=== PATIENT | male | born 1950 | race Asian ===

== ENCOUNTER 2020-01-22 09:20 | Day surgery (SDC) | payer MEDICARE ==
[~2020-01-22] VITALS: Ht 167.6 cm; Wt 72.1 kg
[~2020-01-22 09:20] MED LIST: DAILY MULTIPLE1 EACH PO; LEVOTHYROXINE100 MCG PO
--- NOTE | 2020-01-22 11:22 | NUR ---
01/22/20 1122 Sheets,Maame 1116 PT ARRIVED TO PACU ASLEEP AND ON 2L VIA NC. SMALL AMOUNT OF SNORING NOTED. VSS.
--- NOTE | 2020-01-22 18:33 | OR ---
[facility] [address] [place], [place] [address] Signed DATE OF OPERATION: 01/22/2020 SURGEON: Aiden Solares MD PREOPERATIVE DIAGNOSIS: Personal history of colonic polyps, age 55 (2005). POSTOPERATIVE DIAGNOSES: 1. A 2 mm polyps x2 at 10 cm. 2. A 4 mm polyp at 25 cm. PROCEDURE: Colonoscopy with hot biopsy. ESTIMATED BLOOD LOSS: None. INDICATIONS: Anand is a 69-year-old gentleman who was asked to see me for a followup colonoscopy. While in [place], [place], he had a colonoscopy at [facility]. He remembers polyps had been removed. He cannot remember being told to come back in 5 or 10 years. In the meantime, he has moved back home to [place]. He said he has no lower GI complaints. To his knowledge, there is no family history of colon cancer or polyps. In the office, I gave him a pamphlet on colonoscopy and we looked at that together along with the risks including, but not limited to gas, bloating, crampy abdominal pain, bleeding, perforation requiring surgery, and missed diagnosis. He also understands the need for IV conscious sedation. He had expressed understanding and wished to proceed. PROCEDURE NOTE: Anand was taken into our endoscopy suite and placed in the left lateral decubitus position. He was given a total of 5 mg of Versed and 100 mcg of fentanyl to cover the case. A digital rectal exam was performed and this was unremarkable. The adult colonoscope was introduced and advanced all around into the cecum under direct visualization of camera without difficulty. His prep was good. The scope was slowly withdrawn. We could easily see the appendiceal orifice and the ileocecal valve. There was no diverticulosis. The above-mentioned polyps were easily removed with the help of hot biopsy forceps. Upon retroflexion of the scope, there was no additional pathology noted above the anal canal. After this, the gas was suctioned out and the colonoscope removed. Anand tolerated his procedure quite well. Electronically Signed By: AIDEN SOLARES MD 01/22/20 1833 PATIENT NAME: ANAND COPE OPERATIVE REPORT DATE OF : 46 REPORT #: [id number] PHYSICIAN: AIDEN SOLARES MD PCP: ILAN SAM MD REPORT IS CONFIDENTIAL AND NOT TO BE RELEASED WITHOUT AUTHORIZATION [address] [address] Signed RECOMMENDATIONS: I will see Annad back in my office in 7 to 14 days to review his results. Aiden Solares MD ALB/MODL /[id number] cc: Ilan Sam MD Copies: ~ Electronically Signed By: AIDEN SOLARES MD 01/22/20 1833 PATIENT NAME: ANAND COPE OPERATIVE REPORT DATE OF : 46 REPORT #: [id number] PHYSICIAN: AIDEN SOLARES MD PCP: ILAN SAM MD REPORT IS CONFIDENTIAL AND NOT TO BE RELEASED WITHOUT AUTHORIZATION
--- NOTE | 2020-01-23 10:46 | PATH ---
[facility] [address] [facility] [place], [place] [address] Signed SPECIMEN(S): A SIGMOID POLYP AT 25 CM SPECIMEN(S): B RECTAL POLYP AT 10 CM SPECIMEN SOURCE: A. SIGMOID POLYP AT 25 CM B. RECTAL POLYP AT 10 CM CLINICAL HISTORY: Colonoscopy. History of polyps. MICROSCOPIC DESCRIPTION: Histologic sections of all submitted blocks are examined by light microscopy. These findings, together with the gross examination, support the pathologic diagnosis. FINAL PATHOLOGIC DIAGNOSIS: A. Colon, sigmoid, polyp at 25 cm, polypectomy: - Hyperplastic polyp. - Negative for dysplasia or malignancy. B. Rectum, polyp at 10 cm, polypectomy: - Hyperplastic polyp. - Negative for dysplasia or malignancy. NAL:cml:C2NR GROSS DESCRIPTION: Two specimens are received in two containers, labeled "RS." A. The specimen, labeled "RS," and designated on the requisition "sigmoid polypectomy, 25 cm," is received in formalin and consists of two fragments of pink-boyle tissue (0.5 x 0.3 x 0.2 cm). The specimen is submitted entirely in cassette (A1). B. The specimen, labeled "RS," and designated on the requisition "rectum polypectomy, 10 cm," is received in formalin and consists of two fragments of pink-boyle tissue (0.5 x 0.3 x 0.2 cm in aggregate). The specimen is submitted entirely in cassette (B1). AC (under the direct supervision of a pathologist) The Gross Description was prepared using a voice recognition system. The report was reviewed for accuracy; however, sound-alike word errors, addition and/or deletions may occur. If there is any question about this report, please contact Client Services. PERFORMING LABORATORY: The technical component was performed by [facility], [address] [place], [place] [address]gladys [facility], PATIENT NAME: ANAND COPE PATHOLOGY DATE OF : 46 REPORT #: [id number] PHYSICIAN: SMITH SABILLON PCP: JANELL SAM MD REPORT IS CONFIDENTIAL AND NOT TO BE RELEASED WITHOUT AUTHORIZATION [facility] [address] [place], [place] [address] [place] [address] (Chief Deputy Coroner: Maria L Schwab MD; CLIA# [id number]). Professional interpretation was performed by [facility], [address] [address] (CLIA# [id number]). Diagnostician: Geno Cline MD Pathologist Electronically Signed 01/23/2020 Copies: ~ PATIENT NAME: ANAND COPE PATHOLOGY DATE OF : 46 REPORT #: [id number] PHYSICIAN: SMITH SABILLON PCP: JANELL SAM MD REPORT IS CONFIDENTIAL AND NOT TO BE RELEASED WITHOUT AUTHORIZATION
== END 2020-01-22 12:25 | disposition home or self-care (01) ==
LOC: OPS 09:20 → DS 10:30 → OPS 12:25
PROVIDERS: Colon & Rectal Surgery
PROC: 0DBN8ZZ Excision of Sigmoid Colon, Via Natural or Artificial Opening Endoscopic (ICD-10-PCS; 2020-01-22)
PROC: 0DBP8ZZ Excision of Rectum, Via Natural or Artificial Opening Endoscopic (ICD-10-PCS; principal; 2020-01-22 10:30)
DX: K63.5 Polyp of colon (principal); K62.1 Rectal polyp; E03.9 Hypothyroidism, unspecified; F17.210 Nicotine dependence, cigarettes, uncomplicated; Z86.010 Personal history of colon polyps; Z79.899 Other long term (current) drug therapy; Z88.1 Allergy status to other antibiotic agents
CPT/HCPCS: 99153; G0500; J2250; J3010; J7121

== ENCOUNTER 2021-11-10 11:01 | Emergency (ER) | payer MEDICARE ==
[~2021-11-10] VITALS: Ht 167.6 cm; Wt 72.1 kg
[2021-11-10] MEDS ORDERED: GUAIFENESIN200 MG PO (12:12)
== END 2021-11-10 12:30 | disposition home or self-care (01) ==
LOC: ED 11:01
DX: H66.92 Otitis media, unspecified, left ear (principal); F17.200 Nicotine dependence, unspecified, uncomplicated; Z88.0 Allergy status to penicillin; E07.9 Disorder of thyroid, unspecified; Z79.899 Other long term (current) drug therapy
CPT/HCPCS: 99282

== ENCOUNTER 2022-02-04 07:39 | Day surgery (SDC) | payer MEDICARE ==
[~2022-02-04] VITALS: Ht 167.6 cm; Wt 74.7 kg
[~2022-02-04 07:39] MED LIST changes: +GUAIFENESIN200 MG PO
[2022-02-04] MEDS ORDERED: CLARITIN10 M2 PO (07:56)
--- NOTE | 2022-02-04 09:45 | NUR ---
02/04/22 0945 Joyce Pacheco 0927- PT ARRIVES TO PACU AROUSABLE TO TACTILE STIMULI. PT APNEIC AND NEEDED STIMULATED TO GET HIM TO BREATHE. PT IS ABLE TO START TAKING DEEP BREATHS WHEN TOLD. FALLS BACK TO SLEEP WHEN NOT BEING STIMULATED. OXYGEN SAT MID TO HIGH 90'S ON 3L VIA CO2 NC. 0930- PT CONTINUES TO NEED TO BE STIMULATED TO BREATHE HE OBSTRUCTS HIS AIRWAY WHEN ASLEEP. PT REMAINS AROUSABLE AND WILL TAKE GOOD BREATHS WHEN AWAKE. PT REPORTS NO PAIN OR NAUSEA. FALLS BACK TO SLEEP EASILY WHEN NOT BEING STIMULATED. 0937- PT CONTINUES TO NEED STIMULATED TO TAKE BREATHS HE OBSTRUCTS WHEN SLEEPING. PT REMAINS AROUSABLE TO TACTILE STIMULI AND IS ABLE TO ANSWER QUESTIONS AND FOLLOW COMMANDS. FALLS BACK TO SLEEP EASILY WHEN NOT BEING STIMULATED.
--- NOTE | 2022-02-05 06:42 | OR ---
[facility] [address] [place], [place] [address] Signed DATE OF OPERATION: 02/04/2022 SURGEON: Aiden Solares MD PREOPERATIVE DIAGNOSES: 1. Multiple allergies with postnasal drip. 2. Coughing and nausea. 3. Epigastric pain. 4. History of smoking. 5. Possible mild mid-esophageal thickening on CT scan. 6. Possible tiny hiatal hernia on CT scan. POSTOPERATIVE DIAGNOSES: 1. Moderate duodenitis in pyloric bulb. 2. Mild distal gastritis. 3. Tiny hiatal hernia. 4. Unremarkable mid esophagus. PROCEDURE: EGD with CLOtest and biopsies of the pyloric bulb, antrum, GE junction and midesophagus. ESTIMATED BLOOD LOSS: None. INDICATIONS: Anand is a 71-year-old gentleman asked to see me for upper endoscopy. I have helped Anand in the past with colonoscopies. He does well with Versed and fentanyl. He said he has had tremendous trouble with allergies. They tested him when he was living in [place], [place]. He said he was allergic to almost everything. He said his ears have been fluid-filled and quite miserable for several weeks. He describes constant postnasal drip. It results in significant coughing. He said he has also had epigastric abdominal pain and nausea. He has not had no vomiting. He actually went to the emergency room. The guaifenesin they gave him did not help. He is started on Claritin-D and he said that has actually done pretty well. He had been to his primary care provider. CT scan of his chest, abdomen, and pelvis were performed as well as an ultrasound. There may be some mild thickening in the mid esophagus. He may have a tiny hiatal hernia. Consequently, he was asked to see me today by his primary care provider for upper endoscopy with biopsies. I had met with Anand and his in the office. I gave him a pamphlet on upper endoscopy. We reviewed the nature of that test. There is risk including, but not limited to gas bloating, crampy abdominal pain, bleeding, Electronically Signed By: AIDEN SOLARES MD 02/05/22 0642 PATIENT NAME: ANAND COPE OPERATIVE REPORT DATE OF : 46 REPORT #: [id number] PHYSICIAN: AIDEN SOLARES MD PCP: ILAN SAM MD REPORT IS CONFIDENTIAL AND NOT TO BE RELEASED WITHOUT AUTHORIZATION [facility] [address] [place], [place] [address] Signed perforation requiring surgery, and missed diagnosis. He had expressed understanding and wished to proceed. PROCEDURE NOTE: Anand was taken into our endoscopy suite and placed in the supine semi-recumbent position. A bite block was utilized for the case. He was given 4 mg of Versed and 100 mcg of fentanyl to cover the case. The adult gastroscope was introduced and advanced under direct visualization of the camera. He did have some erythematous changes and irritation in his posterior oropharynx. The scope was then passed readily out into the third portion of the duodenum. The duodenum was unremarkable. However, his pyloric bulb showed moderate inflammatory changes. A biopsy was taken of the pyloric bulb for pathologic review. The distal half of the stomach showed mild erythematous changes. We took a biopsy of the antrum for pathologic review as well as CLOtest. There were no ulcerations. Upon retroflexion of the scope, we can see just a tiny hiatal hernia. It was actually seen better from above. The scope had been withdrawn up through the area of the GE junction, which was compliant without stricture. He does have some irritation around the Z-line. We went ahead and took a biopsy in this area. No Quiles's mucosa. No distal esophagitis. Really, we did not see any pathology in the middle or upper esophagus. We went ahead and took a single biopsy out of his mid esophagus. After this, the gas was suctioned out and the gastroscope was removed. Anand tolerated the procedure quite well. RECOMMENDATIONS: I will see Anand back in my office in 7 to 14 days to review his results. He might consider using a proton-pump inhibitor at least for a couple of months in addition to his Claritin. Aiden Solares MD ALB/MODL /[id number] cc: MD Dr. Ilan Alegria Electronically Signed By: AIDEN SOLARES MD 02/05/22 0642 PATIENT NAME: ANAND COPE OPERATIVE REPORT DATE OF : 46 REPORT #: [id number] PHYSICIAN: AIDEN SOLARES MD PCP: ILAN SAM MD REPORT IS CONFIDENTIAL AND NOT TO BE RELEASED WITHOUT AUTHORIZATION [address] [address] Signed Copies: AIDEN SOLARES MD ~ Electronically Signed By: AIDEN SOLARES MD 02/05/22 0642 PATIENT NAME: ANAND COPE OPERATIVE REPORT DATE OF : 46 REPORT #: [id number] PHYSICIAN: AIDEN SOLARES MD PCP: ILAN SAM MD REPORT IS CONFIDENTIAL AND NOT TO BE RELEASED WITHOUT AUTHORIZATION
--- NOTE | 2022-02-05 11:54 | PATH ---
[facility] [address] [facility] [place], [place] [address] Signed SPECIMEN(S): A PYLORIC BULB BIOPSY SPECIMEN(S): B ANTRUM BIOPSY SPECIMEN(S): C GE JUNCTION SPECIMEN(S): D MIDDLE ESOPHAGEAL BIOPSY SPECIMEN SOURCE: A. PYLORIC BULB BIOPSY B. ANTRUM BIOPSY C. GE JUNCTION D. MIDDLE ESOPHAGEAL BIOPSY CLINICAL HISTORY: EGD. Pre: Epigastric pain, cough, nausea. Post: Moderate duodenitis, mild gastritis. FINAL PATHOLOGIC DIAGNOSIS: A. Pyloric bulb biopsy: - Proximal small bowel-type mucosa with mild acute and chronic inflammation. - Negative for evidence of dysplasia or malignancy. B. Antrum biopsy: - Benign gastric antral-type mucosa with focal slight chronic inflammation. - Negative for evidence of Helicobacter organisms on routine HE stained sections. C. GE junction: - Benign esophageal and gastric-type mucosa with reactive features and mild chronic inflammation. - Focal scant specialized intestinal (goblet cell) metaplasia, negative for dysplasia. - See comment. D. Middle esophageal biopsy: - Benign esophageal epithelium, negative for increased epithelial eosinophils. COMMENT: The gastroesophageal junction biopsy reveals several goblet cells on two levels. These are very limited in number. Clinical correlation is requested to determine their significance. JVR:luan:C2NR MICROSCOPIC EXAMINATION: Histologic sections of all submitted blocks are examined by light microscopy. These findings, together with the gross examination, support the pathologic PATIENT NAME: ANAND COPEYaneli PATHOLOGY DATE OF : 46 REPORT #: [id number] PHYSICIAN: SMITH SABILLON PCP: JANELL SAM MD REPORT IS CONFIDENTIAL AND NOT TO BE RELEASED WITHOUT AUTHORIZATION [facility] [address] [place], [place] [address] Signed diagnosis. GROSS DESCRIPTION: Four specimens are received in four containers labeled with "RS." A. The specimen, labeled "RS, 1," and designated on the requisition "pyloric bulb biopsy," is received in formalin and consists of one fragment of pink-boyle tissue (0.4 cm in greatest dimension). The specimen is submitted entirely in cassette (A1). B. The specimen, labeled "RS, 2," and designated on the requisition "antrum biopsy," is received in formalin and consists of one fragment of pink-boyle tissue (0.3 cm in greatest dimension). The specimen is submitted entirely in cassette (B1). C. The specimen, labeled "RS, 3," and designated on the requisition "EG junction biopsy," is received in formalin and consists of two fragments of white-boyle tissue (0.3 cm in greatest dimension). The specimen is submitted entirely in cassette (C1). D. The specimen, labeled "RS, 4," and designated on the requisition "middle esophagus biopsy," is received in formalin and consists of one fragment of white-boyle tissue (0.3 cm in greatest dimension). The specimen is submitted entirely in cassette (D1). AC (under the direct supervision of a pathologist) The Gross Description was prepared using a voice recognition system. The report was reviewed for accuracy; however, sound-alike word errors, addition and/or deletions may occur. If there is any question about this report, please contact Client Services. PERFORMING LABORATORY: The technical component was performed by [facility], [address] [place] [id number] (CLIA# [id number]). Professional interpretation was performed by [facility], [address] [place] [address] Ave[address] [place] [address] (CLIA#: [id number]). Diagnostician: Ramon Newton MD Pathologist Electronically Signed 02/05/2022 Copies: ~ PATIENT NAME: SRINIVAS COPEALD MANDYYaneli PATHOLOGY DATE OF : 46 REPORT #: [id number] PHYSICIAN: SMITH PATHOLOGY PCP: JANELL SAM MD REPORT IS CONFIDENTIAL AND NOT TO BE RELEASED WITHOUT AUTHORIZATION
== END 2022-02-04 10:42 | disposition home or self-care (01) ==
LOC: OPS 07:39 → DS 07:39 → OPS 10:42
PROVIDERS: ATTEND Colon & Rectal Surgery
PROC: 0DB78ZX Excision of Stomach, Pylorus, Via Natural or Artificial Opening Endoscopic, Diagnostic (ICD-10-PCS; 2022-02-04)
PROC: 0DB68ZX Excision of Stomach, Via Natural or Artificial Opening Endoscopic, Diagnostic (ICD-10-PCS; 2022-02-04)
PROC: 0DB28ZX Excision of Middle Esophagus, Via Natural or Artificial Opening Endoscopic, Diagnostic (ICD-10-PCS; 2022-02-04)
PROC: 0DB48ZX Excision of Esophagogastric Junction, Via Natural or Artificial Opening Endoscopic, Diagnostic (ICD-10-PCS; principal; 2022-02-04 09:00)
DX: K29.00 Acute gastritis without bleeding (principal); K29.50 Unspecified chronic gastritis without bleeding; K29.80 Duodenitis without bleeding; K44.9 Diaphragmatic hernia without obstruction or gangrene; K20.90 Esophagitis, unspecified without bleeding; E03.9 Hypothyroidism, unspecified; Z88.1 Allergy status to other antibiotic agents; Z87.891 Personal history of nicotine dependence; R09.82 Postnasal drip
CPT/HCPCS: 36415; 87077; 99153; G0500; J2250; J3010; J7121

== ENCOUNTER 2024-02-15 12:23 | Emergency (ER) | payer MEDICARE, OTHER ==
[~2024-02-15] VITALS: Ht 320 cm; Wt 80.5 kg
[~2024-02-15 12:23] MED LIST changes: +CLARITIN10 M2 PO
[2024-02-15] MEDS ORDERED: LISINOPRIL20 MG PO (12:58)
[2024-02-15] MEDS ORDERED: CYCLOBENZAPRINE5 MG PO (12:58)
[2024-02-15] MEDS ORDERED: VENTOLIN HFA18 GM INH (12:59)
[2024-02-15] MEDS ORDERED: KETOROLAC TROMETHAMINE 60 MG/2 ML VIAL IM ONE (13:30)
[2024-02-15] MEDS ORDERED: HYDROCODONE/ACETA 7.5/325 TAB PO ONE (13:30)
[2024-02-15] MEDS ORDERED: HYDROCODON-ACE1 EA11 PO (14:50)
[2024-02-15 14:58] VITALS: BP 118/85
== END 2024-02-15 14:58 | disposition home or self-care (01) ==
LOC: ED 12:23
DX: M54.41 Lumbago with sciatica, right side (principal); F17.200 Nicotine dependence, unspecified, uncomplicated; Z79.890 Hormone replacement therapy; Z79.899 Other long term (current) drug therapy
CPT/HCPCS: 96372; 99283-25; A9270; J1885

== ENCOUNTER 2025-01-06 08:13 | Emergency (ER) | payer MEDICARE, OTHER ==
[~2025-01-06] VITALS: Ht 320 cm; Wt 78.0 kg
[~2025-01-06 08:13] MED LIST changes: +CYCLOBENZAPRINE5 MG PO; +HYDROCODON-ACE1 EA11 PO; +LISINOPRIL20 MG PO; +VENTOLIN HFA18 GM INH
[2025-01-06] MEDS ORDERED: LISINOPRIL40 MG PO (08:24)
[2025-01-06] MEDS ORDERED: OMEPRAZOLE40 MG PO (08:24)
[2025-01-06] MEDS ORDERED: KETOROLAC TROMETHAMINE 15 MG/ML VIAL IV ONE (08:30)
[2025-01-06] MEDS ORDERED: SODIUM CHLORIDE 0.9% 1,000 ML IV ONE (08:30)
[2025-01-06] MEDS ORDERED: ACETAMINOPHEN 500 MG TAB PO ONE (08:30)
[2025-01-06 08:40] LABS: BASOPHILS 0.4 % (0.2-1.2); EOSINOPHILS 0.4 % (0.8-7.0); LYMPHOCYTES 25.1 % (21.8-53.1); MCH 30.9 PG (25.7-32.2); MCHC 35.3 g/dL (32.3-36.5); MCV 87.5 fL (79.0-92.2); MONOCYTES 13.1 % (5.3-12.2); NEUTROPHILS 60.8 % (34.0-67.9); RBC 4.95 M/uL (4.63-6.08)
[2025-01-06 08:56] LABS: ALT (SGPT) 35.0 U/L (14-59); AST (SGOT) 38.0 U/L (15-37); GLOMERULAR FILTRATION RATE,EST 76.0 mL/min (>60); PROTEIN, TOTAL 8.2 g/dL (6.4-8.2); UREA NITROGEN 6.0 mg/dL (7-18)
[2025-01-06] MEDS ORDERED: PREDNISONE20 MG PO (09:23)
[2025-01-06 10:29] VITALS: BP 127/74
== END 2025-01-06 10:30 | disposition home or self-care (01) ==
LOC: ED 08:13
PROVIDERS: Emergency Medicine
DX: J02.9 Acute pharyngitis, unspecified (principal); I10 Essential (primary) hypertension; F17.200 Nicotine dependence, unspecified, uncomplicated; Z79.899 Other long term (current) drug therapy; Z88.8 Allergy status to other drugs, medicaments and biological substances
CPT/HCPCS: 36415; 80053; 85025; 87651; 96374; 96375; 99283-25; A9270; J1885; J2919; J7030

== ENCOUNTER 2025-02-20 08:44 | Day surgery (SDC) | payer MEDICARE, OTHER ==
[~2025-02-20] VITALS: Ht 167.6 cm; Wt 82.0 kg
[~2025-02-20 08:44] MED LIST changes: +IBLOOD GLUCOSE TEST STRIP 1 EA TEST VI PRN; +LACTATED RINGER'S 1,000 ML IV SCH; +LIDOCAINE HCL 1% 5 ML SDV INJ ONE; +LISINOPRIL40 MG PO; +OMEPRAZOLE20 MG PO; +OMEPRAZOLE40 MG PO; +PREDNISONE20 MG PO
[2025-02-20 08:53] VITALS: BP 132/72
[2025-02-20] MEDS ORDERED: LIDOCAINE HCL 2% 5 ML SDV ONE (11:13)
--- NOTE | 2025-02-20 11:45 | NUR ---
02/20/25 1145 Avani Gutierres 1130- PT ARRIVES TO PACU WITH ORAL AIRWAY IN PLACE. PT IS NOT OF O2 AT THIS TIME. O2 NC PUT IN PLACE FOR SATS LOWERING ON L2 OT SATS DECREASED TO 87%. CHIN LIFT NEEDED OFF AND ON TO MAINTAIN AIRWAY. VITAL SIGNS OBTAINED AND MONITORS PUT IN PLACE. LR INFUSING. PT IS NONREACTIVE AT THIS TIME. 1134- PT BEGINS PUSHING ORAL AIRWAY OUT AND COUGHING. ORAL AIRWAY REMOVED. PT DENIES PAIN AND NAUSEA. CHIN LIFT NO LONGER NEEDED. PT IS ENCOURAGED TO TAKE A DEEP BREATHE, AND PT IS ABLE TO FOLLOW BASIC COMMANDS. PT EASILY FALLS BACK TO SLEEP WITH SNORING NOTED. HOB INCREASED.
[2025-02-20 11:55] VITALS: BP 131/89
--- NOTE | 2025-02-22 10:37 | OR ---
[facility] [address] [place], [place] [address] Signed DATE OF OPERATION: 02/20/2025 SURGEON: Radha Munoz DO PREOPERATIVE DIAGNOSES: Epigastric pain and early satiety with gastroesophageal reflux disease symptoms. POSTOPERATIVE DIAGNOSES: 1. Epigastric pain and early satiety with gastroesophageal reflux disease symptoms with LA grade C distal esophagitis. 2. Hiatal hernia. 3. Gastric ulceration. 4. Punctate gastritis. PROCEDURE PERFORMED: Esophagogastroduodenoscopy with biopsies of gastroesophageal junction and biopsy of gastric ulcer. ANESTHESIA: IV sedation. ESTIMATED BLOOD LOSS: Minimal. DRAINS: None. COMPLICATIONS: None. DESCRIPTION OF PROCEDURE: The patient was brought to the GI lab, placed in the supine position. After induction of IV sedation through preanesthetized oropharynx and a bite block, the Olympus video endoscope was then introduced into the mouth and directed through the length of the esophagus into the distal esophagus. Upon encountering the distal esophagus, LA grade C distal esophagitis was noted with ulceration at approximately the 3 o'clock position. Multiple biopsies were taken and then passed off the field for pathologic review. distal esophagus. Scope was advanced to the stomach. General exploration was carried out and in the distal aspect of the antrum, a small gastric ulcer was noted. Biopsies of the ulcers were taken. The patient also has a significant punctate Electronically Signed By: RADHA MUNOZ DO 02/22/25 1037 PATIENT NAME: ANATOLIYANAND JOVITAHEATH OPERATIVE REPORT DATE OF : 46 REPORT #: [id number] PHYSICIAN: RADHA MUNOZ DO PCP: RASHAAD MONTIEL MD REPORT IS CONFIDENTIAL AND NOT TO BE RELEASED WITHOUT AUTHORIZATION [facility] [address] [place] [address] Signed gastritis with other small areas of possible healed ulceration in the past with dark apex. Scope was then brought back into the pylorus, 1st and 2nd portion of the duodenum. No intrinsic or extrinsic masses were appreciated. The scope was then brought back into the stomach, retroflexed on itself. A small sliding hiatal hernia was noted, but no other pathology was noted. The scope was then placed in neutral position. Stomach was decompressed. The scope was then withdrawn in its entirety. The patient tolerated the procedure well and taken to recovery room in satisfactory condition. DO KULDEEP Hernandez/FE /[id number] Copies: ~ Electronically Signed By: RADHA MUNOZ DO 02/22/25 1037 PATIENT NAME: ANAND COPE OPERATIVE REPORT DATE OF : 46 REPORT #: [id number] PHYSICIAN: RADHA MUNOZ DO PCP: RASHAAD MONTIEL MD REPORT IS CONFIDENTIAL AND NOT TO BE RELEASED WITHOUT AUTHORIZATION
--- NOTE | 2025-02-25 17:35 | PATH ---
[facility] [address] [facility] [place], [place] [address] Signed SPECIMEN(S): A GE JUNCTION BIOPSY SPECIMEN(S): B STOMACH BIOPSY SPECIMEN SOURCE: A. GE JUNCTION BIOPSY B. STOMACH BIOPSY CLINICAL HISTORY: GERD, esophageal hiatal hernia, LA grade C esophagitis, hiatal hernia, gastritis, gastric ulcer FINAL PATHOLOGIC DIAGNOSIS: A. GE junction biopsy: - Esophageal epithelium with focal erosion, mild to moderate atypia (favor reactive) and chronic inflammation. - Negative for glandular mucosa. B. Stomach biopsy: - Benign gastric mucosa with focal slight chronic inflammation. - Negative for evidence of Helicobacter organisms on routine HE-stained sections. - Negative for ulceration on these sections. JVR:smn MICROSCOPIC EXAMINATION: Histologic sections of all submitted blocks are examined by light microscopy. These findings, together with the gross examination, support the pathologic diagnosis. GROSS DESCRIPTION: A. The specimen, labeled and designated "Jessica, GE junction biopsy," is received in formalin and consists of one boyle soft tissue fragment, 0.6 cm. Entirely submitted in (A1). B. The specimen, labeled and designated "Jessica, stomach biopsy," is received in formalin and consists of one boyle soft tissue fragment, 0.7 cm. Entirely submitted in (B1). VB (under the direct supervision of a pathologist) The Gross Description was prepared using a voice recognition system. The report was reviewed for accuracy; however, sound-alike word errors, addition and/or deletions may occur. If there is any question about this report, please contact Client Services. PATIENT NAME: ANAND COPE PATHOLOGY DATE OF : 46 REPORT #: [id number] PHYSICIAN: SMITH SABILLON PCP: RASHAAD MONTIEL MD REPORT IS CONFIDENTIAL AND NOT TO BE RELEASED WITHOUT AUTHORIZATION [address], [place] [address] Signed PERFORMING LABORATORY: Technical component was performed by [employer], [address] [place] [address] (CLIA# [id number]). Professional interpretation was performed by [facility], [address] [place] [id number] (CLIA#: [id number]). Diagnostician: Ramon Newton MD Pathologist Electronically Signed 02/25/2025 Copies: ~ PATIENT NAME: ANAND COPE PATHOLOGY DATE OF : 46 REPORT #: [id number] PHYSICIAN: SMITH SABILLON PCP: RASHAAD MONTIEL MD REPORT IS CONFIDENTIAL AND NOT TO BE RELEASED WITHOUT AUTHORIZATION
== END 2025-02-20 12:10 | disposition home or self-care (01) ==
LOC: OPS 08:44 → DS 08:44 → OPS 10:20 → DS 10:50 → OPS 12:10 → DS 12:20 → OPS 12:30 → DS 14:00
PROVIDERS: ATTEND Surgery
PROC: 0DB68ZX Excision of Stomach, Via Natural or Artificial Opening Endoscopic, Diagnostic (ICD-10-PCS; 2025-02-20)
PROC: 0DB48ZX Excision of Esophagogastric Junction, Via Natural or Artificial Opening Endoscopic, Diagnostic (ICD-10-PCS; principal; 2025-02-20 10:30)
DX: K21.00 Gastro-esophageal reflux disease with esophagitis, without bleeding (principal); K22.10 Ulcer of esophagus without bleeding; K29.50 Unspecified chronic gastritis without bleeding; K44.9 Diaphragmatic hernia without obstruction or gangrene; E03.9 Hypothyroidism, unspecified; Z79.890 Hormone replacement therapy; Z79.899 Other long term (current) drug therapy; Z87.891 Personal history of nicotine dependence; Z89.022 Acquired absence of left finger(s); Z88.1 Allergy status to other antibiotic agents
CPT/HCPCS: 00813; 88305; J2003; J2704; J7121